=== PATIENT | male | born 1980 | race Caucasian/White ===

== ENCOUNTER 2023-11-13 21:40 | Emergency (ER) | payer SELFPAY ==
[~2023-11-13] VITALS: Ht 195.6 cm; Wt 114.5 kg
[2023-11-13 21:42] VITALS: BP 131/77; TEMP 97.5; O2SAT 98
[2023-11-13] MEDS ORDERED: ROZE8TAB16 PO (21:53)
[2023-11-13] MEDS ORDERED: TRAZ-252 PO (21:53)
[2023-11-13] MEDS ORDERED: GABA-282 PO (21:53)
[2023-11-13] MEDS ORDERED: VERA80TA3 PO (21:53)
[2023-11-13] MEDS ORDERED: EMGA120I SC (21:53)
[2023-11-14] MEDS ORDERED: DIPH12.529 PO (06:49)
[2023-11-14] MEDS ORDERED: HYDR-3363 PO (14:46)
== END 2023-11-13 23:51 | disposition left against medical advice (07) ==
LOC: M ED 21:40
DX: Z53.21 Procedure and treatment not carried out due to patient leaving prior to being seen by health care provider (principal)

== ENCOUNTER 2023-11-14 06:43 | Emergency (ER) | payer OTHER, SELFPAY ==
[~2023-11-14] VITALS: Ht 195.6 cm; Wt 113.5 kg
[~2023-11-14 06:43] MED LIST: EMGA120I SC; GABA-282 PO; ROZE8TAB16 PO; TRAZ-252 PO; VERA80TA3 PO
[2023-11-14] MEDS ORDERED: DIPH12.529 PO (06:49)
[2023-11-14] MEDS ORDERED: MED REC IN PROGRESS XX SCH (11:45)
[2023-11-14 12:16] LABS: HEMATOCRIT 46.7 % (42.0-52.0); HEMOGLOBIN 16.1 g/dl (13.5-17.5); MEAN CORPUSCULAR HEMOGLOBIN 29.2 pg (27.0-33.0); MEAN CORPUSCULAR HGB CONC 34.5 g/dl (32.0-36.5); MEAN CORPUSCULAR VOLUME 84.8 fl (80.0-96.0); PLATELET COUNT, AUTOMATED 260 10^3/uL (150-450); RED BLOOD COUNT 5.51 10^6/uL (4.30-6.10); WHITE BLOOD COUNT 7.9 10^3/uL (4.0-10.0)
[2023-11-14 12:46] LABS: ETHYL ALCOHOL (ETHANOL) < 0.003 % (0.000-0.010)
[2023-11-14 12:47] LABS: CK-MB VALUE MASS 2.3 NG/ML (<3.6)
[2023-11-14 12:48] LABS: ALBUMIN 4.6 G/DL (3.2-5.2); ALKALINE PHOSPHATASE 48 U/L (46-116); ALT/SGPT 157 U/L (7.0-40); AST/SGOT 74 U/L (<34); BILIRUBIN,DIRECT 0.7 MG/DL (<0.4); BILIRUBIN,TOTAL 2.4 MG/DL (0.3-1.2); BLOOD UREA NITROGEN 13 MG/DL (9-23); CALCIUM LEVEL 9.2 MG/DL (8.5-10.1); CARBON DIOXIDE LEVEL 25 MMOL/L (20-31); CHLORIDE LEVEL 108 MMOL/L (98-107); CREATININE FOR GFR 0.87 MG/DL (0.70-1.30); GLOMERULAR FILTRATION RATE > 60.0 (>60); GLUCOSE, FASTING 98 MG/DL (60-100); POTASSIUM SERUM 4.3 MMOL/L (3.5-5.1); SALICYLATE LEVEL < 3.0 MG/DL (<30); SODIUM LEVEL 141 MMOL/L (136-145); TOTAL PROTEIN 7.3 G/DL (5.7-8.2)
[2023-11-14 12:54] LABS: CPK CREATINE PHOSPHOKINASE 254 U/L (46-171)
[2023-11-14] MEDS ORDERED: MED REC CURRENTLY UNOBTAINABLE XX SCH (12:55)
[2023-11-14 14:24] LABS: AMPHETAMINES LEVEL URINE NEGATIVE (NEGATIVE); BARBITURATES URINE NEGATIVE (NEGATIVE); BENZODIAZEPINES URINE NEGATIVE (NEGATIVE); CANNABINOIDS URINE NEGATIVE (NEGATIVE); COCAINE METABOLITE URINE NEGATIVE (NEGATIVE); METHADONE URINE NEGATIVE (NEGATIVE); OPIATES URINE NEGATIVE (NEGATIVE); PHENCYCLIDINE URINE NEGATIVE (NEGATIVE)
[2023-11-14 14:39] LABS: CK-MB VALUE MASS 2.1 NG/ML (<3.6)
[2023-11-14] MEDS ORDERED: HYDR-3363 PO (14:46)
[2023-11-14 14:47] LABS: MB/CK RELATIVE INDEX 0.8 (< OR =4)
[2023-11-14 14:58] VITALS: BP 139/76; TEMP 98.1; O2SAT 97
== END 2023-11-14 15:00 | disposition home or self-care (01) ==
LOC: M ED 06:43
DX: F41.9 Anxiety disorder, unspecified (principal); R00.1 Bradycardia, unspecified; Z88.8 Allergy status to other drugs, medicaments and biological substances; Z79.899 Other long term (current) drug therapy